=== PATIENT | female | born 1995 | race Caucasian/White ===

== ENCOUNTER 2016-05-31 20:40 | Emergency (ER) | payer MEDICAID ==
[2016-05-31 20:47] VITALS: BP 173/86; PULSE 92; RESP 18; TEMP 98.1; O2SAT 98
--- NOTE | 2016-05-31 21:06 | EDPHY ---
H & P Time Seen by Provider: 05/31/16 20:57 HPI/ROS: CHIEF COMPLAINT: Low back pain HISTORY OF PRESENT ILLNESS: This patient is a 21 year old female with a history of chronic back pain who presents to the Emergency Department complaining of sudden onset low back pain with associated bilateral leg paresthesias beginning tonight while she was sitting down, looking at her phone. She was seen at [facility] just prior to arrival for these complaints and was sent home without imaging studies performed. She was not given pain medication at [facility] but was given some Fentanyl in transport by EMS. She has also taken a muscle relaxant given to her by her mother and Ibuprofen without alleviation to her pain. She tells me that her pain and paresthesias have worsened since that time. She has no additional complaints. No bowel or urinary complaints. She denies any recent trauma or unusual lifting or exercise. REVIEW OF SYSTEMS: Constitutional: No fever, no chills Eyes: No visual changes ENT: No sore throat Respiratory: No cough, no shortness of breath Cardiac: No chest pain Gastrointestinal: No nausea, no vomiting, no abdominal pain Genitourinary: No hematuria, no dysuria Musculoskeletal: No leg pain or swelling Back: +low back pain Skin: No rash Neurological: +bilateral leg paresthesias, no headache, no weakness Psychiatric: No depression Past Medical/Surgical History: Chronic back pain. Social History: Smokes daily. Smoking Status: Current every day smoker Physical Exam: General Appearance: Alert, obese, does not appear in pain Eyes: Pupils equal and round, no conjunctival pallor ENT, Mouth: Mucous membranes moist Neck: Normal inspection Respiratory: Lungs are clear to auscultation Cardiovascular: Regular rate and rhythm Gastrointestinal: Abdomen is soft and non-tender Back: normal inspection, no midline tenderness, right lumbar paraspinous tenderness Neurological: A&O, motor 5/5 including dorsiflexion of the 1st toes and foot, sensory intact to light touch, normal gait Skin: Warm and dry, no rash Extremities: Nontender, no pedal edema, negative SLR Psychiatric: Mood and affect normal Constitutional: Initial Vital Signs Temperature (C) 36.7 C 05/31/16 20:43 Heart Rate 92 05/31/16 20:43 Respiratory Rate 18 05/31/16 20:43 Blood Pressure 173/86 H 05/31/16 20:43 O2 Sat (%) 98 01/24/17 20:43 O2 Delivery Mode Room Air Allergies/Adverse Reactions: latex Allergy (Verified 05/31/16 20:43) Home Medications: Medication Instructions Recorded Diazepam [Valium 5 MG (*)] 5 mg PO Q6 PRN #10 tab 05/31/16 Hydrocodone/APAP 5/325 [Tescott 1 - 2 tab PO Q4H PRN #10 tab 05/31/16 5/325] Medical Decision Making ED Course/Re-evaluation: This pt presents with LBP and BLE paresthesias, with a normal neurologic exam. Tingling sensation does not follow anatomic distribution, SLR negative, and I do not suspect acute disc herniation in this pt. Neuroimaging is not indicated. I discussed with the patient that she strained her muscles and my suggestion for symptomatic relief. I recommended that she follow-up with her PCP and a physical therapist to address the back pain. She will benefit from weight reduction as well. She appeared happy with this evaluation and plan of treatment. Differential Diagnosis: includes though not limited to disc herniation, epidural abscess, UTI, renal colic. Departure - Departure Disposition: Home, Routine, Self-Care Clinical Impression: Strain of muscle, fascia and tendon of lower back, initial encounter Condition: Good Instructions: Chronic Back Pain (ED), Low Back Strain (ED) Additional Instructions: 1. Mainstay of therapy is Ibuprofen. Take 650mg Ibuprofen every 6 hours. 2. Take [place]ott and Valium as prescribed, as needed to manage your pain while sleeping. 3. Follow-up with a primary care provider. Dr. Nixon is our on-call physician; you may call to schedule an appointment. I recommend discussing physical therapy with Dr. Nixon as an option to treat your chronic pain. 4. Return to the Emergency Department if you lose control of your bowel movements or bladder, experience severe pain or leg weakness, or for other serious concerns. Referrals: Parth Ken MD [Medical Doctor] - As per Instructions Prescriptions: Hydrocodone/APAP 5/325 [T[place]ott 5/325] 1 - 2 tab PO Q4H PRN #10 tab PRN Reason: Pain, Moderate Diazepam [Valium 5 MG (*)] 5 mg PO Q6 PRN #10 tab PRN Reason: muscle spasm Report Scribed for: Sheela Summers Report Scribed by: Chloe Hall Date of Report: 05/31/16 Time of Report: 20:58 Physician Review and Approval Statement: 05/31/16 20:58 Portions of this note were transcribed by a medical imaging technician. I personally performed a history, physical exam, medical decision making, and confirmed accuracy of information the transcribed note.
== END 2016-05-31 21:36 | disposition home or self-care (01) ==
DX: S39.012A Strain of muscle, fascia and tendon of lower back, initial encounter (principal); F17.200 Nicotine dependence, unspecified, uncomplicated; Z91.040 Latex allergy status; X58.XXXA Exposure to other specified factors, initial encounter